=== PATIENT | female | born 1930 | race Caucasian/White ===

== ENCOUNTER 2016-12-01 07:02 | Day surgery (SDC) | payer MEDICARE, OTHER ==
--- NOTE | ~2016-12-01 | EGD ---
EGD REPORT [facility] [address] [address] NAME: KEVIN KAY : [birth year] STATUS : REG [facility] [place] PAT#: [id number] AGE: 85 ADM/REG DATE : 12/01/16 MR#: [id number] REPORT SERV DATE: 12/01/16 DICTATED BY: CONCEPCIÓN GODFREY DATE: 12/01/16 REPORT STATUS : Draft TRANSCRIBED BY: [facility] DATE: 12/01/16 Endoscopy Center Patient Name: Kevin Kay Date of : 1930 Attending MD: CONCEPCIÓN GODFREY MD Procedure Date No Time: 12/01/2016 Procedure: Upper GI endoscopy Indications: Dysphagia, Stenosis of the esophagus Medicines: Sedation Required Anesthesia Staff Assistance Complications: No immediate complications. Estimated blood loss: Minimal. Procedure: After obtaining informed consent, the endoscope was passed under direct vision. Throughout the procedure, the patient's blood pressure, pulse, and oxygen saturations were monitored continuously. The GIF H190 [id number] was introduced through the mouth, and advanced to the third part of duodenum. The upper GI endoscopy was accomplished without difficulty. The patient tolerated the procedure well. Findings: One superficial esophageal ulcer with no bleeding and no stigmata of recent bleeding was found in the middle third of the esophagus. The lesion was 3 mm in largest dimension. Biopsies were taken with a cold forceps for histology. A benign-appearing, intrinsic moderate stenosis was found at the gastroesophageal junction and was traversed after dilation. Biopsies were taken with a cold forceps for histology. A guidewire was placed and the scope was withdrawn. Dilation was performed with a Savary dilator with no resistance at 42 Fr and mild resistance at 45 Fr. The entire examined stomach was normal. The examined duodenum was normal. Impression: - Non-bleeding esophageal ulcer. Biopsied. - Benign-appearing esophageal stricture. Biopsied. Dilated. - Normal stomach. - Normal examined duodenum. Recommendation: - Discharge patient to home. - Clear liquid diet today. - Use Protonix (pantoprazole) 40 mg PO daily daily. - Continue present medications. - Repeat the upper endoscopy in 1 month for retreatment. EGD REPORT [address] [address] NAME: KEVIN KAY : [birth year] STATUS : REG [facility] [place] PAT#: [id number] AGE: 85 ADM/REG DATE : 12/01/16 MR#: [id number] REPORT SERV DATE: 12/01/16 DICTATED BY: CONCEPCIÓN GODFREY. DATE: 12/01/16 REPORT STATUS : Draft TRANSCRIBED BY: [employer] [facility] DATE: 12/01/16 Procedure Code(s): --- Professional --- 14607, Esophagogastroduodenoscopy, flexible, transoral; with insertion of guide wire followed by passage of dilator(s) through esophagus over guide wire 46848, Esophagogastroduodenoscopy, flexible, transoral; with biopsy, single or multiple Diagnosis Code(s): --- Professional --- K22.10, Ulcer of esophagus without bleeding K22.2, Esophageal obstruction R13.10, Dysphagia, unspecified CPT copyright 2013 [employer]. All rights reserved. The codes documented in this report are preliminary and upon railway head tender review may be revised to meet current compliance requirements. CONCEPCIÓN GODFREY MD 12/01/2016 10:06 AM This report has been signed electronically. Number of Addenda: 0 Note Initiated On: 12/01/2016 9:35 AM [address] [address]
[~2016-12-01 07:02] MED LIST: A/D ZINC OXI TOP; ALPHAGAN P0.1 % OPH; AMARYL4 PO; APRES10B PO; ASAB PO; B121000P IM; CARDURA1 MG PO; CAT3 PO; COREG25 PO; CYANO1000T PO; DIABETA5 PO; ESTRACE VAGIN42.5 GM TOP; FERROUS SULF325 M1 PO; FOLIC PO; GLUCOPHAGE1000 MG PO; HYDROCHLOROT25 MG PO; LEVOTHYROXIN75 MCG PO; LISINOPRIL40 MG PO; MYCOLOG II CREA15 GM TOP; NORV10 PO; SYN.05 PO; SYN075 PO; SYSTANE ULTR OPH; TEARS NATURA OPH; TEKTURNA300 MG PO; TEMOVATE CREAM30 GM TOP; TEMOVATE0.053 EX; TOPICORT0.05 % EX; VITAMIN B-121000 MC1 PO; VITAMIN C100 MG PO; XALAT OPH; [UNRECOGNIZED DRUG - OTHER]
[2016-12-26] MEDS ORDERED: PROTONIX PO (14:00)
== END 2016-12-01 23:59 | disposition home or self-care (01) ==
LOC: DMU 07:02
PROVIDERS: Internal Medicine Gastroenterology
PROC: 0D748ZZ Dilation of Esophagogastric Junction, Via Natural or Artificial Opening Endoscopic (ICD-10-PCS; principal; 2016-12-01 10:30)
PROC: 0DB58ZX Excision of Esophagus, Via Natural or Artificial Opening Endoscopic, Diagnostic (ICD-10-PCS; 2016-12-01 10:30)
DX: K20.9 Esophagitis, unspecified (principal); K22.2 Esophageal obstruction; K21.9 Gastro-esophageal reflux disease without esophagitis; I10 Essential (primary) hypertension; Z86.73 Personal history of transient ischemic attack (TIA), and cerebral infarction without residual deficits; Z88.0 Allergy status to penicillin; Z79.82 Long term (current) use of aspirin; Z79.899 Other long term (current) drug therapy; Z90.710 Acquired absence of both cervix and uterus; Z90.49 Acquired absence of other specified parts of digestive tract; Z98.890 Other specified postprocedural states
CPT/HCPCS: 82962; 88305; 88312

== ENCOUNTER 2016-12-29 06:47 | Day surgery (SDC) | payer MEDICARE, OTHER ==
--- NOTE | ~2016-12-29 | EGD ---
EGD REPORT [facility] [address] [address] NAME: KEVIN KAY : 34 STATUS : REG [facility] [place] PAT#: [id number] AGE: 86 ADM/REG DATE : 12/29/16 MR#: [id number] REPORT SERV DATE: 12/29/16 DICTATED BY: CONCEPCIÓN GODFREY DATE: 12/29/16 REPORT STATUS : Draft TRANSCRIBED BY: [facility] DATE: 12/29/16 Endoscopy Center Patient Name: Kevin Kay Date of : 1930 Attending MD: CONCEPCIÓN GODFREY MD Procedure Date No Time: 12/29/2016 Procedure: Upper GI endoscopy Indications: Stenosis of the esophagus, For therapy of esophageal stenosis Referring MD: MALGORZATA MORGAN MD Medicines: Sedation Required Anesthesia Staff Assistance Complications: No immediate complications. Estimated blood loss: None. Procedure: Pre-Anesthesia Assessment: - ASA Grade Assessment: III - A patient with severe systemic disease. After obtaining informed consent, the endoscope was passed under direct vision. Throughout the procedure, the patient's blood pressure, pulse, and oxygen saturations were monitored continuously. The GIF H190 [id number] was introduced through the mouth, and advanced to the third part of duodenum. The upper GI endoscopy was accomplished without difficulty. The patient tolerated the procedure well. Findings: A benign-appearing, intrinsic mild stenosis was found at the gastroesophageal junction and was traversed. A guidewire was placed and the scope was withdrawn. Dilation was performed with a Savary dilator with no resistance at 48 Fr, mild resistance at 51 Fr and mild resistance at 54 Fr. A small hiatus hernia was present. The examined duodenum was normal. Impression: - Benign-appearing esophageal stricture. Dilated. - Hiatus hernia. - Normal examined duodenum. Recommendation: - Discharge patient to home. - Patient has a contact number available for emergencies. The signs and symptoms of potential delayed complications were discussed with the patient. Return to normal activities tomorrow. Written discharge instructions were provided to the patient. - Soft diet today. - Continue present medications. EGD REPORT [address] [place]. [address] NAME: KEVIN KAY : [birth year] STATUS : REG [facility] [place] PAT#: [id number] AGE: 86 ADM/REG DATE : 12/29/16 MR#: [id number] REPORT SERV DATE: 12/29/16 DICTATED BY: CONCEPCIÓN GODFREY. DATE: 12/29/16 REPORT STATUS : Draft TRANSCRIBED BY: [employer] [facility] DATE: 12/29/16 Procedure Code(s): --- Professional --- 80268, Esophagogastroduodenoscopy, flexible, transoral; with insertion of guide wire followed by passage of dilator(s) through esophagus over guide wire Diagnosis Code(s): --- Professional --- K22.2, Esophageal obstruction K44.9, Diaphragmatic hernia without obstruction or gangrene CPT copyright 2013 [employer]. All rights reserved. The codes documented in this report are preliminary and upon internal medicine physician assistant review may be revised to meet current compliance requirements. CONCEPCIÓN GODFREY MD 12/29/2016 8:31 AM This report has been signed electronically. Number of Addenda: 0 Note Initiated On: 12/29/2016 8:06 AM [facility] [place] [address]
[~2016-12-29 06:47] MED LIST changes: +PROTONIX PO
== END 2016-12-29 23:59 | disposition home or self-care (01) ==
LOC: DMU 06:47
PROVIDERS: Internal Medicine Gastroenterology
PROC: 0D748ZZ Dilation of Esophagogastric Junction, Via Natural or Artificial Opening Endoscopic (ICD-10-PCS; principal; 2016-12-29 08:00)
DX: K22.2 Esophageal obstruction (principal); K44.9 Diaphragmatic hernia without obstruction or gangrene; K21.9 Gastro-esophageal reflux disease without esophagitis; E11.9 Type 2 diabetes mellitus without complications; I10 Essential (primary) hypertension; E03.9 Hypothyroidism, unspecified; D64.9 Anemia, unspecified; M19.90 Unspecified osteoarthritis, unspecified site; Z88.0 Allergy status to penicillin; Z90.710 Acquired absence of both cervix and uterus; Z98.890 Other specified postprocedural states
CPT/HCPCS: 82962